=== PATIENT | female | born 1995 | race African-American/Black ===

== ENCOUNTER 2019-08-01 04:08 | Emergency (ER) | payer MEDICAID, OTHER ==
[~2019-08-01] VITALS: Ht 162.6 cm; Wt 82.0 kg
[~2019-08-01 04:08] MED LIST: PRE NATAL VITAMIN
[2019-08-01] MEDS ORDERED: ACETAMINOPHEN 325MG TABLET PO PRN (05:00)
[2019-08-01 05:55] LABS: CHLORIDE 108 mEq/L (98-107)
[2019-08-01 06:06] LABS: BASOPHILS % 0.3 % (0.0-2.0); EOSINOPHILS % 1.6 % (0.0-5.0); HEMATOCRIT. 28.8 % (36.0-48.0); HEMOGLOBIN. 9.3 g/dL (12.0-16.0); LYMPHOCYTES % 27.7 % (20.0-50.0); MEAN CORPUSCULAR HEMOGLOBIN 25.9 pg (28.0-32.0); MEAN CORPUSCULAR VOLUME 79.9 fL (81.0-99.0); MEAN PLATELET VOLUME 7.2 fl (7.4-10.4); NEUTROPHILS % 60.4 % (40.0-76.0); PLATELET 257 x1000/uL (130-400); RED BLOOD CELL COUNT 3.61 mill/uL (4.2-5.4)
[2019-08-01 06:25] LABS: B-HCG QUANTITATIVE 43048 mIU/mL (<3)
[2019-08-01 10:59] LABS: CLARITY URINE TURBID (CLEAR); COLOR URINE RED (YELLOW); KETONES URINE NEGATIVE (NEGATIVE); LEUKOCYTE ESTERASE URINE 1+ (NEGATIVE); NITRITE URINE NEGATIVE (NEGATIVE); OCCULT BLOOD URINE 3+ (NEGATIVE); PROTEIN URINE 1+ (NEGATIVE); UROBILINOGEN URINE 0.2 E.U./dL (0.2-1.0)
[2019-08-01 12:38] VITALS: BP 96/54
[2019-08-01] MEDS ORDERED: NITROFURANTOIN 100MG M/M CAPSULE PO SCH (21:00)
== END 2019-08-01 14:04 | disposition home or self-care (01) ==
LOC: ER 04:27
DX: O99.011 Anemia complicating pregnancy, first trimester (principal); O26.91 Pregnancy related conditions, unspecified, first trimester; R10.31 Right lower quadrant pain; O99.411 Diseases of the circulatory system complicating pregnancy, first trimester; Z3A.13 13 weeks gestation of pregnancy; Z86.73 Personal history of transient ischemic attack (TIA), and cerebral infarction without residual deficits
CPT/HCPCS: 36415; 72195; 74181; 76801; 76857; 80053; 81003; 83690; 84702; 85025; 99284; Z7610